=== PATIENT | male | born 1965 | race Caucasian/White ===

== ENCOUNTER 2016-11-08 14:16 | Inpatient (IN) | payer OTHER ==
[2016-11-08 17:53] VITALS: BMI 23.5
--- NOTE | 2016-11-08 20:13 | HP ---
CIWA Score - CIWA Score Nausea/Vomitin Muscle Tremors: 3 Anxiety: 3 Agitation: 3 Paroxysmal Sweats: 2 Orientation: 1-Uncertain about Date Tacttile Disturbances: 0-None Auditory Disturbances: 1-Very Mild Visual Disturbances: 1-Very Mild Sensitivity Headache: 2-Mild CIWA-Ar Total Score: 18 Admission ROS S - HPI Chief Complaint: WITHDRAWAL SYMPTOMS Allergies/Adverse Reactions: Allergies Allergy/AdvReac Type Severity Reaction Status Date / Time No Known Allergies Allergy Verified 11/08/16 18:36 History of Present Illness: 51 y.o. man with an extensive history of alcohol dependence is here for detox. He does not have a significant period of sobriety. This is is first admission here but reports he completed detox and rehab elsewhere in April,. Exam Limitations: No Limitations - Ebola screening Have you traveled outside of the country in the last 21 days: No Have you had contact with anyone from an Ebola affected area: No Have you been sick,other than usual withdrawal symptoms: No Do you have a fever: No - Review of Systems Constitutional: Chills, Diaphoresis, Loss of Appetite, Malaise, Changes in sleep , Weakness EENT: reports: No Symptoms Reported Respiratory: reports: No Symptoms reported Cardiac: reports: Lightheadedness GI: reports: Vomiting : reports: No Symptoms Reported Musculoskeletal: reports: Gout Integumentary: reports: No Symptoms Reported Neuro: reports: No Symptoms reported, Headache Endocrine: reports: No Symptoms Reported Hematology: reports: No Symptoms Reported Psychiatric: reports: Judgement Intact, Mood/Affect Appropiate, Depressed Other Systems: Reviewed and Negative Patient History - Patient Medical History Hx Anemia: No Hx Asthma: No Hx Chronic Obstructive Pulmonary Disease (COPD): No Hx Cancer: No Hx Cardiac Disorders: No Hx Congestive Heart Failure: No Hx Hypertension: No Hx Hypercholesterolemia: No Hx Pacemaker: No HX Cerebrovascular Accident: No Hx Seizures: No Hx Dementia: No Hx Diabetes: No Hx Gastrointestinal Disorders: Yes (Diverticulitis ) Hx Liver Disease: No Hx Genitourinary Disorders: No Hx Sexually Transmitted Disorders: No Hx Renal Disease (ESRD): No Hx Thyroid Disease: No Hx Human Immunodeficiency Virus (HIV): No Hx Hepatitis C: No Hx Depression: Yes Hx Suicide Attempt: No Hx Bipolar Disorder: No Hx Schizophrenia: No - Patient Surgical History Past Surgical History: Yes Hx Neurologic Surgery: No Hx Cataract Extraction: No Hx Cardiac Surgery: No Hx Lung Surgery: No Hx Breast Surgery: No Hx Breast Biopsy: No Hx Abdominal Surgery: Yes (Colostomy d/t diverticulosis 2016) Hx Appendectomy: No Hx Cholecystectomy: No Hx Genitourinary Surgery: No Hx Section: No Hx Orthopedic Surgery: No Other Surgical History: diverticulosis- 2015 Anesthesia Reaction: No - PPD History Previous Implant?: Yes Documented Results: Negative w/o proof PPD to be Administered?: Yes - Reproductive History Patient is a Female of Child Bearing Age (11 -55 yrs old): No - Smoking Cessation Smoking history: Current every day smoker Have you smoked in the past 12 months: Yes Aproximately how many cigarettes per day: 10 Hx Chewing Tobacco Use: No Initiated information on smoking cessation: Yes 'Breaking Loose' booklet given: 11/08/16 - Substance & Tx. History Hx Alcohol Use: Yes Hx Substance Use: No Substance Use Type: Alcohol Hx Substance Use Treatment: Yes (Detox and rehab in 2016 at [facility] ; reports he completed both) - Substances Abused Alcohol Route: Oral Frequency: Daily Amount used: LIQUOR- 1 QUART, BEER- 1 SIX PACK Age of first use: 16 Date of Last Use: 11/07/16 Family Disease History - Family Disease History Family Disease History: CA: Father (Lung ca; ) Admission Physical Exam S - Vital Signs Vital Signs: Vital Signs - 24 hr 11/08/16 17:51 Temperature 97.5 F L Pulse Rate 112 H Respiratory 18 Rate Blood Pressure 127/93 - Physical General Appearance: Yes: Tremorous, Irritable, Sweating, Anxious HEENTM: Yes: Hearing grossly Normal, Normocephalic, Normal Voice Respiratory: Yes: Chest Non-Tender, Lungs Clear, Normal Breath Sounds, No Respiratory Distress, No Accessory Muscle Use Neck: Yes: No masses,lesions,Nodules Breast: Yes: Breast Exam Deferred Cardiology: Yes: Regular Rhythm, Tachycardia Abdominal: Yes: Normal Bowel Sounds, Non Tender, Flat, Soft Genitourinary: Yes: Other (No complaints reported) Back: Yes: Normal Inspection Musculoskeletal: Yes: Gait Steady Extremities: Yes: Normal Capillary Refill, Normal Inspection, Normal Range of Motion, Non-Tender Neurological: Yes: Alert, Normal Mood/Affect, Normal Response Integumentary: Yes: Normal Color, Dry, Warm Lymphatic: Yes: Within Normal Limits - Diagnostic (1) Alcohol dependence with uncomplicated withdrawal Current Visit: Yes Status: Chronic (2) Diverticulitis Current Visit: Yes Status: Chronic (3) Gout Current Visit: Yes Status: Chronic Cleared for Admission [facility] - Detox or Rehab [facility] Level of Care: Medically Managed Detox Regimen/Protocol: Librium [facility] Breath Alcohol Content Breath Alcohol Content: 0 Urine Drug Screen - Results Drug Screen Negative: No Urine Drug Screen Results: BZO-Benzodiazepines
[2016-11-08] MEDS ORDERED: MENTHOL/PHENOL 1 EACH UD MM PRN (20:24)
[2016-11-08] MEDS ORDERED: MAG HYDROX/AL HYDROX/SIMETH 30 ML UNIT-DOSE CUP PO PRN (20:24)
[2016-11-08] MEDS ORDERED: LOPERAMIDE HCL 2 MG CAPSULE PO PRN (20:24)
[2016-11-08] MEDS ORDERED: guaiFENesin/D-METHORPHAN HB 10 ML UNIT-DOSE CUPS PO PRN (20:24)
[2016-11-08] MEDS ORDERED: NICOTINE POLACRILEX 2 MG GUM BC PRN (20:24)
[2016-11-08] MEDS ORDERED: MAGNESIUM HYDROX 2400MG/30ML ORAL SUSPENSION 30 ML CUP PO PRN (20:24)
[2016-11-08] MEDS ORDERED: hydrOXYzine PAMOATE 50 MG CAPSULE (FP) PO PRN (20:24)
[2016-11-08] MEDS ORDERED: P-EPHED 60MG/TRIPROLIDI 2.5MG TABLET PO PRN (20:24)
[2016-11-08] MEDS ORDERED: MAGNESIUM CITRATE 300 ML BOTTLE PO PRN (20:24)
[2016-11-08] MEDS ORDERED: ACETAMINOPHEN 325 MG TABLET (FP) PO PRN (20:24)
[2016-11-08] MEDS ORDERED: chlordiazePOXIDE HCL 25 MG CAPSULE PO ONE (20:24)
[2016-11-08] MEDS: chlordiazePOXIDE HCL 25 MG CAPSULE PO SCH (22:26)
[2016-11-08] MEDS: THIAMINE HCL 100 MG TABLET (FP) PO SCH (22:26)
[2016-11-08] MEDS: diphenhydrAMINE HCL 50 MG CAPSULE PO PRN (22:26)
[2016-11-08 23:13] LABS: URINE APPEARANCE CLEAR; URINE BILIRUBIN NEGATIVE (NEGATIVE); URINE BLOOD NEGATIVE (NEGATIVE); URINE COLOR YELLOW; URINE GLUCOSE (UA) NEGATIVE (NEGATIVE); URINE KETONE NEGATIVE (NEGATIVE); URINE LEUK ESTERASE NEGATIVE (NEGATIVE); URINE NITRITE NEGATIVE (NEGATIVE); URINE PROTEIN NEGATIVE (NEGATIVE); URINE UROBILINOGEN NEGATIVE mg/dL (0.2-1.0)
[2016-11-09] MEDS: chlordiazePOXIDE HCL 25 MG CAPSULE PO SCH ×4 (06:00→22:12)
[2016-11-09] MEDS: chlordiazePOXIDE HCL 25 MG CAPSULE PO PRN (08:58)
--- NOTE | 2016-11-09 10:07 | CONSULT ---
[facility] Psychiatric Consult - Data Date of interview: 11/09/16 Admission source: [facility] Identifying data: Readmission to [facility] for this 51 y/o male seeking detox treatment on for alcohol dependence.Patient is single, without children,homeless,unemployed and supported on Public Assistance. Substance Abuse History: Long standing history of alcohol abuse from age 18 onwards (2 pints of vodka + six beers daily).last drink on 11/07/16.Smokes 1/2 pack of cigarettes a day. Medical History: Gout and a history of diverticulitis (reversal of colostomy in 04/2016). Psychiatric History: Patient denies. Physical/Sexual Abuse/Trauma History: Patient denies. Mental Status Exam - Mental Status Exam Alert and Oriented to: Time, Place, Person Cognitive Function: Good Patient Appearance: Well Groomed Mood: Euthymic Affect: Appropriate, Mood Congruent, Normal Range Patient Behavior: Fatigued, Appropriate, Cooperative Speech Pattern: Clear Voice Loudness: Normal Thought Process: Intact, Goal Oriented Thought Disorder: Not Present Hallucinations: Denies Suicidal Ideation: Denies Homicidal Ideation: Denies Insight/Judgement: Poor Sleep: Poorly, Difficulty falling asleep Appetite: Good Muscle strength/Tone: Normal Gait/Station: Normal Psychiatric Findings - Problem List ([place] 1, 2,3) (1) Alcohol dependence with uncomplicated withdrawal Current Visit: Yes Status: Acute (2) Nicotine dependence Current Visit: Yes Status: Acute (3) Diverticulitis Current Visit: Yes Status: Chronic (4) Gout Current Visit: Yes Status: Chronic (5) Insomnia Current Visit: Yes Status: Acute - Initial Treatment Plan Initial Treatment Plan: Psychoeducation.Detoxification.Insomnia is addressed with benadryl 50 mg po hs.Side effects/benefits discussed with the patient.He agrees with careplan.Observation.
[2016-11-09] MEDS: PRENATAL VITAMINS W/ FOLIC ACID TABLET (FP) PO SCH (10:12)
[2016-11-09] MEDS: NICOTINE 14 MG/24 HOURS TOPICAL PATCH TD SCH (10:12)
--- NOTE | 2016-11-09 10:15 | PN ---
[facility] CIWA - CIWA Score Nausea/Vomitin-No Nausea/No Vomiting Muscle Tremors: 4-Moderate,w/Arms Extend Anxiety: 4-Mod. Anxious/Guarded Agitation: 4-Moderately Restless Paroxysmal Sweats: 1-Minimal Palms Moist Orientation: 0-Oriented Tacttile Disturbances: 3-Moderate Itch/Numb/Burn Auditory Disturbances: 0-None Visual Disturbances: 0-None Headache: 0-None Present CIWA-Ar Total Score: 16 BHS Progress Note (SOAP) Subjective: TREMORS,ANXIETY,SWEATS/CHILLS,IRRITABILITY. Objective: 11/09/16 10:13 Vital Signs Temperature 98.3 F 11/09/16 09:24 Pulse Rate 105 H 11/09/16 09:24 Respiratory Rate 20 11/09/16 09:24 Blood Pressure 121/84 11/09/16 09:24 O2 Sat by Pulse Oximetry (%) Laboratory Last Values Urine Color Yellow 11/08/16 23:00 Urine Appearance Clear 11/08/16 23:00 Urine pH 7.0 (5.0-8.0) 11/08/16 23:00 Urine Protein Negative (NEGATIVE) 11/08/16 23:00 Urine Glucose (UA) Negative (NEGATIVE) 11/08/16 23:00 Urine Ketones Negative (NEGATIVE) 11/08/16 23:00 Urine Blood Negative (NEGATIVE) 11/08/16 23:00 Urine Nitrite Negative (NEGATIVE) 11/08/16 23:00 Urine Bilirubin Negative (NEGATIVE) 11/08/16 23:00 Urine Urobilinogen Negative mg/dL (0.2-1.0) 11/08/16 23:00 Ur Leukocyte Esterase Negative (NEGATIVE) 11/08/16 23:00 OTHER LABS PENDING Assessment: 11/09/16 10:13 WITHDRAWAL SX Plan: CONTINUE DETOX ADDITIONAL LIBRIUM 50 MG PO ONCE AT 2:30 PM TODAY.
[2016-11-09 10:22] LABS: MCH 31.3 pg (25.7-33.7); MCHC 34.4 g/dl (32.0-35.9); MEAN PLT VOLUME 9.1 fl (7.5-11.1); PLATELET COUNT 79 K/MM3 (134-434); RDW 14.8 % (11.9-15.9); WHITE BLOOD COUNT 2.4 K/mm3 (4.0-10.0)
[2016-11-09 10:53] LABS: ALBUMIN 3.4 g/dl (3.4-5.0); ALK PHOS 117 U/L (45-117); ANION GAP 11 (8-16); BILIRUBIN,TOTAL 0.9 mg/dL (0.2-1.0); CALCIUM 9.1 mg/dL (8.5-10.1); CO2 27 mmol/L (21-32); CREATININE 0.6 mg/dL (0.7-1.3); GLUCOSE,RANDOM 90 mg/dL (74-106); SGOT/AST 74 U/L (15-37); SGPT/ALT 54 U/L (12-78); TOT PROT 7.1 g/dl (6.4-8.2)
[2016-11-09 11:19] LABS: HIV 1 & 2 AB NEGATIVE; HIV 1 AGp24 NEGATIVE
[2016-11-09] MEDS ORDERED: chlordiazePOXIDE HCL 25 MG CAPSULE PO ONE (14:30)
[2016-11-09] MEDS: IBUPROFEN 400 MG TABLET (FP) PO PRN (18:57)
--- NOTE | 2016-11-09 21:50 | EKG ---
Test Reason : Blood Pressure : / mmHG Vent. Rate : 094 BPM Atrial Rate : 094 BPM P-R Int : 120 ms QRS Dur : 098 ms QT Int : 380 ms P-R-T Axes : 058 054 044 degrees QTc Int : 475 ms NORMAL SINUS RHYTHM NONSPECIFIC ST AND T WAVE ABNORMALITY NO PREVIOUS ECGS AVAILABLE REPEAT EKG IF CLINICALLY INDICATED Confirmed by JOSEY COHEN MD ([id number]) on 11/09/2016 9:49:47 PM Referred By: Confirmed By:JOSEY COHEN MD
[2016-11-09] MEDS: THIAMINE HCL 100 MG TABLET (FP) PO SCH (22:12)
[2016-11-09] MEDS: diphenhydrAMINE HCL 50 MG CAPSULE PO PRN (22:12)
[2016-11-09] MEDS: POTASSIUM CHLORIDE TABS 20 MEQ TABLET.ER (FP) PO SCH (23:55)
[2016-11-10] MEDS: IBUPROFEN 400 MG TABLET (FP) PO PRN ×3 (02:06→15:54)
[2016-11-10] MEDS: chlordiazePOXIDE HCL 25 MG CAPSULE PO SCH ×3 (05:09→17:38)
[2016-11-10] MEDS: chlordiazePOXIDE HCL 25 MG CAPSULE PO PRN (08:46)
[2016-11-10] MEDS: POTASSIUM CHLORIDE TABS 20 MEQ TABLET.ER (FP) PO SCH ×2 (10:05→22:04)
[2016-11-10] MEDS: PRENATAL VITAMINS W/ FOLIC ACID TABLET (FP) PO SCH (10:06)
[2016-11-10] MEDS: NICOTINE 14 MG/24 HOURS TOPICAL PATCH TD SCH (10:08)
--- NOTE | 2016-11-10 11:44 | PN ---
[facility] CIWA - CIWA Score Nausea/Vomitin-No Nausea/No Vomiting Muscle Tremors: 4-Moderate,w/Arms Extend Anxiety: 4-Mod. Anxious/Guarded Agitation: 4-Moderately Restless Paroxysmal Sweats: 1-Minimal Palms Moist Orientation: 0-Oriented Tacttile Disturbances: 3-Moderate Itch/Numb/Burn Auditory Disturbances: 0-None Visual Disturbances: 0-None Headache: 0-None Present CIWA-Ar Total Score: 16 BHS Progress Note (SOAP) Subjective: ANXIETY,TREMORS,SWEATS,C/O LEFT KNEE PAIN,REDNESS AND SWELLING-HX GOUT AND TAKES COLCHICINE Objective: 11/10/16 11:44 Vital Signs Temperature 97.1 F L 11/10/16 09:25 Pulse Rate 88 11/10/16 09:25 Respiratory Rate 18 11/10/16 09:25 Blood Pressure 119/77 11/10/16 09:25 O2 Sat by Pulse Oximetry (%) Laboratory Last Values WBC 2.4 K/mm3 (4.0-10.0) L 11/09/16 09:05 RBC 4.46 M/mm3 (4.00-5.60) 11/09/16 09:05 Hgb 13.9 GM/dL (11.7-16.9) 11/09/16 09:05 Hct 40.6 % (35.4-49) 11/09/16 09:05 MCV 91.0 fl (80-96) 11/09/16 09:05 MCH 31.3 pg (25.7-33.7) 11/09/16 09:05 MCHC 34.4 g/dl (32.0-35.9) 11/09/16 09:05 RDW 14.8 % (11.9-15.9) 11/09/16 09:05 Plt Count 79 K/MM3 (134-434) L 11/09/16 09:05 MPV 9.1 fl (7.5-11.1) 11/09/16 09:05 Sodium 138 mmol/L (136-145) 11/09/16 09:05 Potassium 3.0 mmol/L (3.5-5.1) L 11/09/16 09:05 Chloride 100 mmol/L (98-107) 11/09/16 09:05 Carbon Dioxide 27 mmol/L (21-32) 11/09/16 09:05 Anion Gap 11 (8-16) 11/09/16 09:05 BUN 10 mg/dL (7-18) 11/09/16 09:05 Creatinine 0.6 mg/dL (0.7-1.3) L 11/09/16 09:05 Creat Clearance w eGFR > 60 (>60) 11/09/16 09:05 Random Glucose 90 mg/dL (74-106) 11/09/16 09:05 Calcium 9.1 mg/dL (8.5-10.1) 11/09/16 09:05 Total Bilirubin 0.9 mg/dL (0.2-1.0) 11/09/16 09:05 AST 74 U/L (15-37) H 11/09/16 09:05 ALT 54 U/L (12-78) 11/09/16 09:05 Alkaline Phosphatase 117 U/L (45-117) 11/09/16 09:05 Total Protein 7.1 g/dl (6.4-8.2) 11/09/16 09:05 Albumin 3.4 g/dl (3.4-5.0) 11/09/16 09:05 Urine Color Yellow 11/08/16 23:00 Urine Appearance Clear 11/08/16 23:00 Urine pH 7.0 (5.0-8.0) 11/08/16 23:00 Ur Specific [place] 1.020 (1.005-1.025) 11/08/16 23:00 Urine Protein Negative (NEGATIVE) 11/08/16 23:00 Urine Glucose (UA) Negative (NEGATIVE) 11/08/16 23:00 Urine Ketones Negative (NEGATIVE) 11/08/16 23:00 Urine Blood Negative (NEGATIVE) 11/08/16 23:00 Urine Nitrite Negative (NEGATIVE) 11/08/16 23:00 Urine Bilirubin Negative (NEGATIVE) 11/08/16 23:00 Urine Urobilinogen Negative mg/dL (0.2-1.0) 11/08/16 23:00 Ur Leukocyte Esterase Negative (NEGATIVE) 11/08/16 23:00 RPR Titer Nonreactive (NONREACTIVE) 11/09/16 09:05 Hepatitis C Antibody <0.1 s/co ratio (0.0-0.9) 11/08/16 09:05 HIV 1&2 Antibody Screen Negative 11/09/16 09:05 HIV P24 Antigen Negative 11/09/16 09:05 LABS NOTED. K+ = 3.0 LEFT KNEE SLIGHTLY RED WITH MINIMAL SWELLING, WARM TO TOUCH. Assessment: 11/10/16 11:45 WITHDRAWAL SX GOUTY ARTHRITIS Plan: CONTINUE DETOX KDUR 20 MEQ PO BID. FIRST DOSE NOW. COLCHICINE
[2016-11-10] MEDS: COLCHICINE 0.6 MG TABLET (FP) PO SCH (12:51)
[2016-11-10] MEDS: THIAMINE HCL 100 MG TABLET (FP) PO SCH (22:03)
[2016-11-10] MEDS: chlordiazePOXIDE 5 MG CAPSULE PO SCH (22:04)
[2016-11-10] MEDS: diphenhydrAMINE HCL 50 MG CAPSULE PO PRN (22:04)
[2016-11-11] MEDS: chlordiazePOXIDE 5 MG CAPSULE PO SCH ×3 (05:10→17:09)
[2016-11-11] MEDS: POTASSIUM CHLORIDE TABS 20 MEQ TABLET.ER (FP) PO SCH ×2 (10:11→22:11)
[2016-11-11] MEDS: PRENATAL VITAMINS W/ FOLIC ACID TABLET (FP) PO SCH (10:11)
[2016-11-11] MEDS: NICOTINE 14 MG/24 HOURS TOPICAL PATCH TD SCH (10:12)
--- NOTE | 2016-11-11 10:22 | PN ---
BHS Progress Note (SOAP) Subjective: DECREASED TREMORS,ANXIETY,SWEATS. Objective: 11/11/16 10:22 Vital Signs Temperature 97.9 F 11/11/16 09:45 Pulse Rate 86 11/11/16 09:45 Respiratory Rate 20 11/11/16 09:45 Blood Pressure 106/77 11/11/16 09:45 O2 Sat by Pulse Oximetry (%) Laboratory Last Values WBC 2.4 K/mm3 (4.0-10.0) L 11/09/16 09:05 RBC 4.46 M/mm3 (4.00-5.60) 11/09/16 09:05 Hgb 13.9 GM/dL (11.7-16.9) 11/09/16 09:05 Hct 40.6 % (35.4-49) 11/09/16 09:05 MCV 91.0 fl (80-96) 11/09/16 09:05 MCH 31.3 pg (25.7-33.7) 11/09/16 09:05 MCHC 34.4 g/dl (32.0-35.9) 11/09/16 09:05 RDW 14.8 % (11.9-15.9) 11/09/16 09:05 Plt Count 79 K/MM3 (134-434) L 11/09/16 09:05 MPV 9.1 fl (7.5-11.1) 11/09/16 09:05 Sodium 138 mmol/L (136-145) 11/09/16 09:05 Potassium 3.0 mmol/L (3.5-5.1) L 11/09/16 09:05 Chloride 100 mmol/L (98-107) 11/09/16 09:05 Carbon Dioxide 27 mmol/L (21-32) 11/09/16 09:05 Anion Gap 11 (8-16) 11/09/16 09:05 BUN 10 mg/dL (7-18) 11/09/16 09:05 Creatinine 0.6 mg/dL (0.7-1.3) L 11/09/16 09:05 Creat Clearance w eGFR > 60 (>60) 11/09/16 09:05 Random Glucose 90 mg/dL (74-106) 11/09/16 09:05 Calcium 9.1 mg/dL (8.5-10.1) 11/09/16 09:05 Total Bilirubin 0.9 mg/dL (0.2-1.0) 11/09/16 09:05 AST 74 U/L (15-37) H 11/09/16 09:05 ALT 54 U/L (12-78) 11/09/16 09:05 Alkaline Phosphatase 117 U/L (45-117) 11/09/16 09:05 Total Protein 7.1 g/dl (6.4-8.2) 11/09/16 09:05 Albumin 3.4 g/dl (3.4-5.0) 11/09/16 09:05 Urine Color Yellow 11/08/16 23:00 Urine Appearance Clear 11/08/16 23:00 Urine pH 7.0 (5.0-8.0) 11/08/16 23:00 Ur Specific [place] 1.020 (1.005-1.025) 11/08/16 23:00 Urine Protein Negative (NEGATIVE) 11/08/16 23:00 Urine Glucose (UA) Negative (NEGATIVE) 11/08/16 23:00 Urine Ketones Negative (NEGATIVE) 11/08/16 23:00 Urine Blood Negative (NEGATIVE) 11/08/16 23:00 Urine Nitrite Negative (NEGATIVE) 11/08/16 23:00 Urine Bilirubin Negative (NEGATIVE) 11/08/16 23:00 Urine Urobilinogen Negative mg/dL (0.2-1.0) 11/08/16 23:00 Ur Leukocyte Esterase Negative (NEGATIVE) 11/08/16 23:00 RPR Titer Nonreactive (NONREACTIVE) 11/09/16 09:05 Hepatitis C Antibody <0.1 s/co ratio (0.0-0.9) 11/08/16 09:05 HIV 1&2 Antibody Screen Negative 11/09/16 09:05 HIV P24 Antigen Negative 11/09/16 09:05 Assessment: 11/11/16 10:22 WITHDRAWAL SX Plan: CONTINUE DETOX
[2016-11-11] MEDS: COLCHICINE 0.6 MG TABLET (FP) PO SCH (11:00)
[2016-11-11] MEDS: THIAMINE HCL 100 MG TABLET (FP) PO SCH (22:10)
[2016-11-11] MEDS: chlordiazePOXIDE HCL 10 MG CAPSULE PO SCH (22:10)
[2016-11-11] MEDS: diphenhydrAMINE HCL 50 MG CAPSULE PO PRN (22:11)
[2016-11-12] MEDS: chlordiazePOXIDE HCL 10 MG CAPSULE PO SCH (05:22)
--- NOTE | 2016-11-12 08:59 | DS ---
[facility] Detox Discharge Summary Admission Date: 11/08/16 Discharge Date: 11/12/16 - History Present History: Alcohol Dependence Additional Comments: DETOX COMPLETED.ALERT O X 3. NAD. Pertinent Past History: GOUT DIVERTICULITIS - Physical Exam Results Vital Signs: Vital Signs Temperature 97.3 F L 11/12/16 06:07 Pulse Rate 84 11/12/16 06:07 Respiratory Rate 18 11/12/16 06:07 Blood Pressure 125/84 11/12/16 06:07 O2 Sat by Pulse Oximetry (%) Pertinent Admission Physical Exam Findings: WITHDRAWAL SX - Treatment Hospital Course: Detox Protocol Followed, Detoxed Safely, Responded well, Discharged Condition Good, Rehab Referral Accepted Patient has Accepted a Rehab Referral to: [facility] OPD - Medication Discharge Medications: Ambulatory Orders Colchicine 0.6 mg PO DAILY #30 tab 11/12/16 - Diagnosis (1) Alcohol dependence with uncomplicated withdrawal Current Visit: Yes Status: Acute (2) Insomnia Current Visit: Yes Status: Chronic (3) Nicotine dependence Current Visit: Yes Status: Acute Qualifiers: Nicotine product type: cigarettes Substance use status: in withdrawal Qualified Code(s): F17.213 - Nicotine dependence, cigarettes, with withdrawal (4) Diverticulitis Current Visit: Yes Status: Chronic Qualifiers: Diverticulitis site: unspecified part of intestinal tract (5) Gout Current Visit: Yes Status: Chronic Qualifiers: Gout site: knee Laterality: left - AMA Did Patient Leave Against Medical Advice: No
[2016-11-12 09:10] VITALS: BP 105/75; PULSE 86; TEMP 97.5
== END 2016-11-12 09:53 | disposition home or self-care (01) | DRG 775 ==
LOC: YASAS 14:16 → EDBD 19:11 → Y3N 19:11
PROVIDERS: ADMIT Internal Medicine; ATTEND Internal Medicine
PROC: HZ2ZZZZ Detoxification Services for Substance Abuse Treatment (ICD-10-PCS; principal; 2016-11-12)
DX: F10.230 Alcohol dependence with withdrawal, uncomplicated (principal); G47.00 Insomnia, unspecified; M10.9 Gout, unspecified; K57.20 Diverticulitis of large intestine with perforation and abscess without bleeding; Z93.3 Colostomy status; Z59.0 Homelessness
CPT/HCPCS: 36415; 80053; 81003; 85027; 86593; 86803; 87389; 93005; 93010

== ENCOUNTER 2021-01-30 10:47 | Inpatient (IN) | payer OTHER ==
[2021-01-30] MEDS ORDERED: MAGNESIUM HYDROX 2400MG/30ML ORAL SUSPENSION 30 ML CUP PO PRN (11:56)
[2021-01-30] MEDS ORDERED: LOPERAMIDE HCL 2 MG CAPSULE PO PRN (11:56)
[2021-01-30] MEDS ORDERED: MAGNESIUM CITRATE 300 ML BOTTLE PO PRN (11:56)
[2021-01-30] MEDS ORDERED: NICOTINE 10 MG CARTRIDGE (INHALER) IH PRN (11:56)
[2021-01-30] MEDS ORDERED: MAG HYDROX/AL HYDROX/SIMETH 30 ML UNIT-DOSE CUP PO PRN (11:56)
[2021-01-30] MEDS ORDERED: ACETAMINOPHEN 325 MG TABLET (FP) PO PRN (11:56)
[2021-01-30] MEDS ORDERED: BISMUTH SUBSALICYLATE 262 MG/15 ML BTL PO PRN (11:56)
[2021-01-30] MEDS ORDERED: MENTHOL/PHENOL 1 EACH UD MM PRN (11:56)
[2021-01-30] MEDS ORDERED: ONDANSETRON *ODT* 4 MG TABLET SL PRN (11:56)
[2021-01-30] MEDS ORDERED: IBUPROFEN 400 MG TABLET (FP) PO PRN (11:56)
[2021-01-30] MEDS ORDERED: diazePAM 5 MG TABLET PO ONE (11:58)
[2021-01-30] MEDS: PRENATAL VITAMINS W/ FOLIC ACID TABLET (FP) PO SCH (12:10)
[2021-01-30] MEDS: NICOTINE 14 MG/24 HOURS TOPICAL PATCH TD SCH (12:14)
[2021-01-30 12:18] VITALS: BMI 22.5
[2021-01-30 14:40] LABS: HEMATOCRIT 39.7 % (35.4-49); HEMOGLOBIN 13.5 GM/dL (11.7-16.9); MCH 33.4 pg (25.7-33.7); MEAN PLT VOLUME 9.8 fl (7.5-11.1); PLATELET COUNT 41 10^3/uL (134-434); RBC 4.05 M/mm3 (4.00-5.60); RDW 14.3 % (11.9-15.9)
[2021-01-30] MEDS: hydrOXYzine PAMOATE 25 MG CAPSULE (FP) PO SCH ×3 (14:58→22:30)
[2021-01-30 15:04] LABS: ALBUMIN 4.1 g/dl (3.4-5.0); BLOOD UREA NITROGEN 5.3 mg/dL (7-18)
[2021-01-30 15:08] LABS: CREATININE 0.7 mg/dL (0.55-1.3)
[2021-01-30 15:09] LABS: BILIRUBIN,TOTAL 0.9 mg/dL (0.2-1); TOT PROT 8.5 g/dl (6.4-8.2)
[2021-01-30] MEDS: diazePAM 5 MG TABLET PO PRN (15:17)
[2021-01-30] MEDS: diazePAM 5 MG TABLET PO SCH ×2 (17:51→22:30)
[2021-01-30] MEDS: THIAMINE HCL 100 MG TABLET (FP) PO SCH (22:30)
[2021-01-30] MEDS: MELATONIN 5 MG TABLETS PO SCH (22:30)
[2021-01-31] MEDS: diazePAM 5 MG TABLET PO SCH ×4 (06:25→22:08)
[2021-01-31] MEDS: hydrOXYzine PAMOATE 25 MG CAPSULE (FP) PO SCH ×5 (06:26→22:09)
[2021-01-31] MEDS: PRENATAL VITAMINS W/ FOLIC ACID TABLET (FP) PO SCH (10:28)
[2021-01-31] MEDS: ACETAMINOPHEN 325 MG TABLET (FP) PO PRN (10:29)
[2021-01-31] MEDS: NICOTINE 14 MG/24 HOURS TOPICAL PATCH TD SCH (10:29)
[2021-01-31] MEDS ORDERED: FLU VACC QS2021-22(6MOS UP)/PF 60 MCG/0.5 ML SYRINGE IM ONE (12:00)
[2021-01-31] MEDS: THIAMINE HCL 100 MG TABLET (FP) PO SCH (22:09)
[2021-01-31] MEDS: MELATONIN 5 MG TABLETS PO SCH (22:09)
[2021-02-01] MEDS: diazePAM 5 MG TABLET PO SCH ×3 (05:19→22:20)
[2021-02-01] MEDS: hydrOXYzine PAMOATE 25 MG CAPSULE (FP) PO SCH ×5 (05:20→22:19)
[2021-02-01] MEDS: PRENATAL VITAMINS W/ FOLIC ACID TABLET (FP) PO SCH (11:02)
[2021-02-01] MEDS: NICOTINE 14 MG/24 HOURS TOPICAL PATCH TD SCH (11:02)
[2021-02-01] MEDS: diazePAM 5 MG TABLET PO PRN (17:26)
[2021-02-01] MEDS: THIAMINE HCL 100 MG TABLET (FP) PO SCH (22:19)
[2021-02-01] MEDS: MELATONIN 5 MG TABLETS PO SCH (22:19)
[2021-02-01] MEDS: ACETAMINOPHEN 325 MG TABLET (FP) PO PRN (22:21)
[2021-02-02] MEDS: hydrOXYzine PAMOATE 25 MG CAPSULE (FP) PO SCH (05:14)
[2021-02-02] MEDS: diazePAM 5 MG TABLET PO SCH ×2 (05:14→17:59)
[2021-02-02] MEDS: ACETAMINOPHEN 325 MG TABLET (FP) PO PRN ×2 (05:16→22:30)
[2021-02-02] MEDS ORDERED: hydrOXYzine PAMOATE 25 MG CAPSULE (FP) PO PRN (09:06)
[2021-02-02] MEDS: PRENATAL VITAMINS W/ FOLIC ACID TABLET (FP) PO SCH (10:24)
[2021-02-02] MEDS: METHOCARBAMOL 500 MG TABLET PO PRN ×2 (10:27→22:29)
[2021-02-02] MEDS: diazePAM 5 MG TABLET PO PRN (10:27)
[2021-02-02] MEDS: NICOTINE 14 MG/24 HOURS TOPICAL PATCH TD SCH (10:30)
[2021-02-02 12:12] LABS: BASO % 0.4 % (0-2.0); EOS % 2.8 % (0-4.5); HEMATOCRIT 35.5 % (35.4-49); HEMOGLOBIN 12.3 GM/dL (11.7-16.9); LYMPH % 30.4 % (8-40); MCH 33.9 pg (25.7-33.7); MCHC 34.5 g/dl (32.0-35.9); MEAN CELL VOLUME 98.2 fl (80-96); MEAN PLT VOLUME 9.8 fl (7.5-11.1); NEUT % 54.4 % (42.8-82.8); RBC 3.62 M/mm3 (4.00-5.60); RDW 14.3 % (11.9-15.9); WHITE BLOOD COUNT 2.7 K/mm3 (4.0-10.0)
[2021-02-02 12:16] LABS: BLOOD UREA NITROGEN 9.8 mg/dL (7-18); CALCIUM 8.4 mg/dL (8.5-10.1)
[2021-02-02 12:17] LABS: BILIRUBIN,TOTAL 0.6 mg/dL (0.2-1); TOT PROT 6.8 g/dl (6.4-8.2)
[2021-02-02 12:19] LABS: BILIRUBIN,DIRECT 0.2 mg/dL (0.0-0.2); CREATININE 0.6 mg/dL (0.55-1.3)
[2021-02-02 12:26] LABS: PLATELET COUNT 34 10^3/uL (134-434)
[2021-02-02] MEDS ORDERED: POTASSIUM CHLORIDE TABS 20 MEQ TABLET.ER (FP) PO SCH (13:45)
[2021-02-02] MEDS: MELATONIN 5 MG TABLETS PO SCH (22:29)
[2021-02-02] MEDS: THIAMINE HCL 100 MG TABLET (FP) PO SCH (22:29)
[2021-02-03] MEDS ORDERED: diazePAM 5 MG TABLET PO ONE (06:00)
[2021-02-03] MEDS: ACETAMINOPHEN 325 MG TABLET (FP) PO PRN (06:48)
[2021-02-03 09:09] VITALS: BP 99/62; PULSE 71; TEMP 96.4
[2021-02-03 12:41] LABS: HEMATOCRIT 35.1 % (35.4-49); HEMOGLOBIN 12.1 GM/dL (11.7-16.9); MCHC 34.3 g/dl (32.0-35.9); MEAN CELL VOLUME 98.9 fl (80-96); MEAN PLT VOLUME 10.6 fl (7.5-11.1); PLATELET COUNT 52 10^3/uL (134-434); RBC 3.55 M/mm3 (4.00-5.60); RDW 14.5 % (11.9-15.9); WHITE BLOOD COUNT 2.9 K/mm3 (4.0-10.0)
[2021-02-03 12:55] LABS: ALBUMIN 3.1 g/dl (3.4-5.0); BLOOD UREA NITROGEN 8.3 mg/dL (7-18)
[2021-02-03 12:56] LABS: BILIRUBIN,TOTAL 0.6 mg/dL (0.2-1); CALCIUM 8.8 mg/dL (8.5-10.1); TOT PROT 6.9 g/dl (6.4-8.2)
[2021-02-03 12:57] LABS: CREATININE 0.6 mg/dL (0.55-1.3)
== END 2021-02-03 09:42 | disposition home or self-care (01) | DRG 775 ==
LOC: YASAS 10:47 → Y3N 12:13
PROVIDERS: ADMIT Allergy & Immunology; ATTEND Allergy & Immunology
PROC: HZ2ZZZZ Detoxification Services for Substance Abuse Treatment (ICD-10-PCS; principal; 2021-01-30)
DX: F10.230 Alcohol dependence with withdrawal, uncomplicated (principal); F17.210 Nicotine dependence, cigarettes, uncomplicated; G47.00 Insomnia, unspecified; R94.5 Abnormal results of liver function studies; D72.819 Decreased white blood cell count, unspecified
CPT/HCPCS: 36415; 80048; 80053; 80076; 85025; 85027; 86780; 90686; C9803; G0008; U0003; U0005